=== PATIENT | male | born 1990 | race Two or more races ===

== ENCOUNTER 2019-06-14 08:51 | Emergency (ER) | payer MEDICAID ==
[~2019-06-14] VITALS: Ht 177.8 cm; Wt 106.8 kg
[2019-06-14] MEDS ORDERED: KETO10TA2 PO (08:59)
[2019-06-14] MEDS ORDERED: [UNRECOGNIZED DRUG - OTHER] PO (08:59)
[2019-06-14] MEDS ORDERED: HYDROCODONE/ACETAMINOPHEN 5-325 MG TABLET PO ONE (10:45)
[2019-06-14 12:37] VITALS: BP 117/72
== END 2019-06-14 13:01 | disposition home or self-care (01) ==
LOC: EMS 08:53
DX: S82.141A Displaced bicondylar fracture of right tibia, initial encounter for closed fracture (principal); F17.210 Nicotine dependence, cigarettes, uncomplicated; Z98.890 Other specified postprocedural states; V29.9XXA Motorcycle rider (driver) (passenger) injured in unspecified traffic accident, initial encounter; Y93.89 Activity, other specified; Y92.488 Other paved roadways as the place of occurrence of the external cause; Y99.8 Other external cause status
CPT/HCPCS: 73700; 99406